=== PATIENT | female | born 1970 | race Caucasian/White ===

== ENCOUNTER 2020-02-17 18:11 | Emergency (ER) | payer OTHER ==
[~2020-02-17] VITALS: Ht 165.1 cm; Wt 111.8 kg
[~2020-02-17 18:11] MED LIST: ASPI-515 PO; HCG250DI SL; HYDR1TAB13 PO; IBUP200T49 PO
[2020-02-17] MEDS ORDERED: ASPIRIN 81 MG TABLET CHEW ONE (18:29)
[2020-02-17] MEDS ORDERED: ASPIRIN 81 MG TABLET CHEW PO ONE (18:30)
[2020-02-17 19:04] LABS: ALANINE AMINOTRANSFERASE 23 U/L (12-78); ALBUMIN 3.8 g/dL (3.4-5.0); ANION GAP 8 mmol/L (5-15); CALCIUM 9.1 mg/dL (8.5-10.1); CHLORIDE 108 mmol/L (98-107); CREATININE 0.96 mg/dL (0.55-1.02)
[2020-02-17 19:08] LABS: ALKALINE PHOSPHATASE 121 U/L (45-117); BASOPHILS % (AUTO) 0 % (0-1); BILIRUBIN,TOTAL 0.2 mg/dL (0.2-1.0); EOSINOPHILS % (AUTO) 2 % (1-7); LYMPHOCYTES % (AUTO) 28 % (22-44); MEAN CORPUSCULAR HEMOGLOBIN 30.2 pg (27.0-34.8); MEAN CORPUSCULAR HGB CONC 32.9 g/dL (32.4-35.8); MEAN PLATELET VOLUME 8.2 fL (7.4-10.4); MONOCYTES % (AUTO) 7 % (2-9); NEUTROPHILS % (AUTO) 64 % (42-75); PLATELET COUNT 411 x10^3/uL (130-400); RED BLOOD COUNT 4.62 x10^6/uL (3.82-5.3); RED CELL DISTRIBUTION WIDTH 14.7 % (9.6-15.2); TOTAL PROTEIN 8.4 g/dL (6.4-8.2); TROPONIN I < 0.015 ng/mL (0.000-0.045)
[2020-02-17 19:10] LABS: MD NO
[2020-02-17 21:05] VITALS: BP 123/79
--- NOTE | 2020-02-17 21:38 | NUR ---
PT STATES HAS SIGNIFIANT FAMILY HX OF CARDIAC, PT STATES SHE HAS HAD SEVERAL MA BUT REPORTS HAVING NO HX OF STENTS OR CABG. REPORTS HAVING FACTOR 5 LEIDEN NOT ON ANY BLOOD THINNERS. DENIES ANY SOB, C/O INTERMITTENT MID STERNAL CHEST PRESSURE RADIATES THROUGH TO BACK, SINCE EARLIER TODAY. NOW CP FREE. NSR NO ECTOPY OR ST ELEVTION. VSS. AIDET PROVIDED. ON MONITOR.
--- NOTE | 2020-02-17 22:03 | NUR ---
DC HOME WITH INSTRUCT PT VERBALIZES UNDERSTANDING OF INSTRUCT.
--- NOTE | 2020-02-17 22:17 | NUR ---
WAITING FOR DC PAPERS. VSS, IV DC CATH INTACT.
== END 2020-02-17 22:50 | disposition home or self-care (01) ==
LOC: ED 21:41
DX: R07.89 Other chest pain (principal); I25.2 Old myocardial infarction; I10 Essential (primary) hypertension; E78.5 Hyperlipidemia, unspecified; R94.31 Abnormal electrocardiogram [ECG] [EKG]
CPT/HCPCS: 36415; 71045; 80053; 84484; 85025; 93005; 99285